=== PATIENT | male | born 1950 | race Caucasian/White ===

== ENCOUNTER 2021-03-09 21:37 | Emergency (ER) | payer BC, MEDICARE ==
[~2021-03-09] VITALS: Ht 170.2 cm; Wt 104.5 kg
[~2021-03-09 21:37] MED LIST: FLUO20CA39 PO; GABA600T13 PO; HYDR-4353 PO; LEVO500T89 PO; LISI2.5T2 PO; METH500T PO; MORP60TA77 PO; PANT-47 PO
[2021-03-09 21:44] VITALS: BP 100/73
[2021-03-09] MEDS ORDERED: TETanus/Pertussis (Acell)/Diphther VAC/PF (Tdap-Adult) 0.5ml syringe IMVAC ONE (23:00)
[2021-03-10] MEDS ORDERED: CEPH250T PO (10:46)
== END 2021-03-09 23:40 | disposition home or self-care (01) ==
LOC: ER 21:37
DX: S61.012A Laceration without foreign body of left thumb without damage to nail, initial encounter (principal); I10 Essential (primary) hypertension; K21.9 Gastro-esophageal reflux disease without esophagitis; Z79.2 Long term (current) use of antibiotics; Z79.899 Other long term (current) drug therapy; Z20.3 Contact with and (suspected) exposure to rabies; X58.XXXA Exposure to other specified factors, initial encounter; Y93.89 Activity, other specified; Y92.89 Other specified places as the place of occurrence of the external cause; Y99.8 Other external cause status
CPT/HCPCS: 12001; 90471; 90715; 99283

== ENCOUNTER 2021-03-10 09:50 | Emergency (ER) | payer MEDICARE ==
[~2021-03-10] VITALS: Ht 170.2 cm; Wt 104.5 kg
[2021-03-10 10:10] VITALS: BP 125/82
[2021-03-10] MEDS ORDERED: LIDOcaine 1% W/epiNEPHrine 1:200,000 10ml vial IJ ONE (10:20)
[2021-03-10] MEDS ORDERED: bacitracin 15gm ointment TP ONE (10:20)
[2021-03-10] MEDS ORDERED: CEPH250T PO (10:46)
== END 2021-03-10 11:10 | disposition home or self-care (01) ==
LOC: ER 09:51
DX: S61.011A Laceration without foreign body of right thumb without damage to nail, initial encounter (principal); I10 Essential (primary) hypertension; K21.9 Gastro-esophageal reflux disease without esophagitis; Z98.890 Other specified postprocedural states; Z90.89 Acquired absence of other organs; Z72.89 Other problems related to lifestyle; Z79.2 Long term (current) use of antibiotics; Z79.899 Other long term (current) drug therapy; X58.XXXA Exposure to other specified factors, initial encounter; Y93.89 Activity, other specified; Y92.89 Other specified places as the place of occurrence of the external cause; Y99.8 Other external cause status
CPT/HCPCS: 12001; 99283

== ENCOUNTER 2022-05-22 08:05 | Emergency (ER) | payer MEDICARE ==
[~2022-05-22] VITALS: Ht 170.2 cm; Wt 100.0 kg
[~2022-05-22 08:05] MED LIST changes: +LEVO-65 PO; -LEVO500T89 PO; +LISI2.5T14 PO; -LISI2.5T2 PO
[2022-05-22 08:19] VITALS: BP 166/107
== END 2022-05-22 09:40 | disposition home or self-care (01) ==
LOC: ER 08:05
DX: S61.411A Laceration without foreign body of right hand, initial encounter (principal); K21.9 Gastro-esophageal reflux disease without esophagitis; I10 Essential (primary) hypertension; Z79.899 Other long term (current) drug therapy; Z79.1 Long term (current) use of non-steroidal anti-inflammatories (NSAID); W45.8XXA Other foreign body or object entering through skin, initial encounter; Y93.89 Activity, other specified; Y92.89 Other specified places as the place of occurrence of the external cause; Y99.8 Other external cause status
CPT/HCPCS: 12001; 99282; J7030; A6258; A6449